=== PATIENT | female | born 1965 | race Caucasian/White ===

== ENCOUNTER → 2024-05-20 13:26 | Outpatient (REF) | payer OTHER, SELFPAY | LOC: RAD 13:26 | PROVIDERS: ATTENDING PHYSICIAN Nurse Practitioner Family | DX: R05.1 Acute cough (principal); U07.1 COVID-19 | CPT/HCPCS: 71046 ==

== ENCOUNTER → 2024-10-20 07:15 | Outpatient (REF) | payer OTHER, SELFPAY | LOC: WDC 07:15 | PROVIDERS: ATTENDING PHYSICIAN Nurse Practitioner Family | DX: Z12.31 Encounter for screening mammogram for malignant neoplasm of breast (principal) | CPT/HCPCS: 77063; 77067 ==